=== PATIENT | female | born 1965 | race Hispanic/Latino ===

== ENCOUNTER 2018-11-09 22:05 | Emergency (ER) | payer SELFPAY ==
[2018-11-09] MEDS ORDERED: KETOROLAC 30 MG/ML INJ ONE (23:43)
[2018-11-09] MEDS ORDERED: HYDROCODONE/APAP 10/325 TAB ONE (23:43)
--- NOTE | 2018-11-10 00:50 | ER ---
Nurse's Notes [facility] Name: Cori Carwley Age: 53 yrs Sex: Female : 1965 Arrival Date: 11/09/2018 Time: 22:06 Bed 23 Private MD: Diagnosis: Pain in right knee Presentation: 11/09 22:35 Presenting complaint: Patient states: right knee swelling and pain that began 1 week aa5 ago. Pt states "I went to a clinic and they gave me ibuprofen and a muscle relaxer but it's not helping". Transition of care: patient was not received from another setting of care. Onset of symptoms was October 2018. Risk Assessment: Do you want to hurt yourself or someone else? Patient reports no desire to harm self or others. Initial Sepsis Screen: Does the patient meet any 2 criteria? No. Patient's initial sepsis screen is negative. Does the patient have a suspected source of infection? No. Patient's initial sepsis screen is negative. Care prior to arrival: None. 22:35 Acuity: YO 4 aa5 22:35 Method Of Arrival: Wheelchair aa5 [employer]: 22:36 LMP N/A - Post-menopause aa5 Historical: - Allergies: 22:35 No Known Allergies; aa5 - Home Meds: 22:35 None [Active]; aa5 - PMHx: 22:35 None; aa5 - PSHx: 22:35 ; aa5 - Immunization history:: Adult Immunizations unknown. - Social history:: Smoking status: Patient/guardian denies using tobacco. - Ebola Screening: : No symptoms or risks identified at this time. - Family history:: not pertinent. Screenin:42 Abuse screen: Denies threats or abuse. Denies injuries from another. Nutritional rv screening: No deficits noted. Tuberculosis screening: No symptoms or risk factors identified. Fall Risk None identified. Assessment: 22:41 General: Appears in no apparent distress. uncomfortable, Behavior is calm, cooperative. rv Pain: Complains of pain in right leg. Neuro: Level of Consciousness is awake, alert, obeys commands, Oriented to person, place, time, situation. Cardiovascular: Patient's skin is warm and dry. Respiratory: Airway is patent. GI: No signs and/or symptoms were reported involving the gastrointestinal system. : No signs and/or symptoms were reported regarding the genitourinary system. EENT: No signs and/or symptoms were reported regarding the EENT system. Derm: Skin is intact. Musculoskeletal: Range of motion: limited in right knee Reports pain in right leg. Vital Signs: 22:36 BP 123 / 84; Pulse 71; Resp 18 S; Temp 98.0(O); Pulse Ox 100% on R/A; Weight 99.79 kg aa5 (R); Height 5 ft. 6 in. (167.64 cm) (R); Pain 9/10; 11/10 00:15 BP 138 / 71; Pulse 57; Resp 16; Pulse Ox 100% on R/A; rv 11/09 22:36 Body Mass Index 35.51 (99.79 kg, 167.64 cm) aa5 ED Course: 11/09 22:06 Patient arrived in ED. ag3 22:34 Arm band placed on. aa5 22:36 Triage completed. aa5 22:37 Jose Bustos MD is Attending Physician. viral 22:41 Raza Gary RN is Primary Nurse. rv 22:43 Patient has correct armband on for positive identification. Bed in low position. Call rv light in reach. Side rails up X 1. Adult w/ patient. Pulse ox on. NIBP on. 23:35 X-ray completed. Portable x-ray completed in exam room. Patient tolerated procedure kw well. 23:36 Knee Right 3 View XRAY In Process Unspecified. EDMS 09 00:15 No provider procedures requiring assistance completed. Knee immobilizer applied on rv right knee. 00:46 Damien Collins MD is Referral Physician. viral 01:43 Patient did not have IV access during this emergency room visit. rv Administered Medications: 11/09 23:46 Drug: TORadol 60 mg Route: IM; Site: right deltoid; rv 11/10 01:42 Follow up: Response: No adverse reaction; Marked relief of symptoms; Pain is decreased rv 11/09 23:47 Drug: [place] 10 mg-325 mg 1 tabs {Note: RASS 0.} Route: PO; rv 11/10 01:42 Follow up: Response: No adverse reaction; Marked relief of symptoms; Pain is decreased; rv RASS: Alert and Calm (0) Outcome: 00:46 Discharge ordered by . viral 01:42 Discharged to home via wheelchair, with crutches, with family. rv 01:42 Condition: good 01:42 Discharge instructions given to patient, family, Instructed on discharge instructions, follow up and referral plans. medication usage, crutch walking, Demonstrated understanding of instructions, follow-up care, medications, crutch walking, Prescriptions given X 2. 01:43 Patient left the ED. rv Signatures: Dispatcher [employer] EDMS Jose Bustos MD MD cha Calderon, Audri, RN RN rere5 Crista Hawley Ronaldo RN RN Micheline Douglas
--- NOTE | 2018-11-10 00:50 | EDPHYS ---
Physician Documentation [facility] Name: Cori Crawley Age: 53 yrs Sex: Female : 1965 Arrival Date: 11/09/2018 Time: 22:06 Bed 23 Private MD: ED Physician Jose Bustos HPI: 11/09 23:38 This 53 yrs old Female presents to ER via Wheelchair with complaints of Leg viral Pain. 23:38 The patient presents with decreased range of motion, pain, that is acute. The viral complaints affect the right knee. Context: The problem was sustained at an unknown site, resulted from an unknown cause, the patient can partially bear weight, must have assistance, Problem is a result from a previous injury: No. Onset: The symptoms/episode began/occurred 10 day(s) ago. Modifying factors: The symptoms are alleviated by elevating leg, remaining still, the symptoms are aggravated by movement, weight bearing, bending knee. Associated signs and symptoms: The patient has no apparent associated signs or symptoms. Treatment prior to arrival includes: no previous treatment. Severity of symptoms: At their worst the symptoms were moderate, in the emergency department the symptoms are unchanged. The patient has not experienced similar symptoms in the past. 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 - Social history:: Smoking status: Patient/guardian denies using tobacco. - Ebola Screening: : No symptoms or risks identified at this time. - Family history:: not pertinent. ROS: 23:38 Constitutional: Negative for fever, chills, and weight loss, Eyes: Negative for injury, viral pain, redness, and discharge, ENT: Negative for injury, pain, and discharge, Neck: Negative for injury, pain, and swelling, Cardiovascular: Negative for chest pain, palpitations, and edema, Respiratory: Negative for shortness of breath, cough, wheezing, and pleuritic chest pain, Abdomen/GI: Negative for abdominal pain, nausea, vomiting, diarrhea, and constipation, Back: Negative for injury and pain, : Negative for injury, bleeding, discharge, and swelling, Skin: Negative for injury, rash, and discoloration, Neuro: Negative for headache, weakness, numbness, tingling, and seizure, Psych: Negative for depression, anxiety, suicide ideation, homicidal ideation, and hallucinations, Allergy/Immunology: Negative for hives, rash, and allergies, Endocrine: Negative for neck swelling, polydipsia, polyuria, polyphagia, and marked weight changes, Hematologic/Lymphatic: Negative for swollen nodes, abnormal bleeding, and unusual bruising. 23:38 MS/extremity: Positive for decreased range of motion, pain, swelling, tenderness, of the right knee. Exam: 23:38 Constitutional: This is a well developed, well nourished patient who is awake, alert, viral and in no acute distress. Head/Face: Normocephalic, atraumatic. Eyes: Pupils equal round and reactive to light, extra-ocular motions intact. Lids and lashes normal. Conjunctiva and sclera are non-icteric and not injected. Cornea within normal limits. Periorbital areas with no swelling, redness, or edema. ENT: Nares patent. No nasal discharge, no septal abnormalities noted. Tympanic membranes are normal and external auditory canals are clear. Oropharynx with no redness, swelling, or masses, exudates, or evidence of obstruction, uvula midline. Mucous membranes moist. Neck: Trachea midline, no thyromegaly or masses palpated, and no cervical lymphadenopathy. Supple, full range of motion without nuchal rigidity, or vertebral point tenderness. No Meningismus. Chest/axilla: Normal chest wall appearance and motion. Nontender with no deformity. No lesions are appreciated. Cardiovascular: Regular rate and rhythm with a normal S1 and S2. No gallops, murmurs, or rubs. Normal PMI, no JVD. No pulse deficits. Respiratory: Lungs have equal breath sounds bilaterally, clear to auscultation and percussion. No rales, rhonchi or wheezes noted. No increased work of breathing, no retractions or nasal flaring. Abdomen/GI: Soft, non-tender, with normal bowel sounds. No distension or tympany. No guarding or rebound. No evidence of tenderness throughout. Back: No spinal tenderness. No costovertebral tenderness. Full range of motion. Skin: Warm, dry with normal turgor. Normal color with no rashes, no lesions, and no evidence of cellulitis. Neuro: Awake and alert, GCS 15, oriented to person, place, time, and situation. Cranial nerves II-XII grossly intact. Motor strength 5/5 in all extremities. Sensory grossly intact. Cerebellar exam normal. Normal gait. Psych: Awake, alert, with orientation to person, place and time. Behavior, mood, and affect are within normal limits. 23:38 Musculoskeletal/extremity: Extremities: noted in the right knee: decreased ROM, pain, ROM: full passive range of motion, in the right knee, limited active range of motion due to pain, DVT Exam: negative Homans' sign noted on exam, no appreciated bluish discoloration, no erythema, no increased warmth, pain, swelling, tenderness. Vital Signs: 22:36 BP 123 / 84; Pulse 71; Resp 18 S; Temp 98.0(O); Pulse Ox 100% on R/A; Weight 99.79 kg aa5 (R); Height 5 ft. 6 in. (167.64 cm) (R); Pain 9/10; 11/10 00:15 BP 138 / 71; Pulse 57; Resp 16; Pulse Ox 100% on R/A; rv 11/09 22:36 Body Mass Index 35.51 (99.79 kg, 167.64 cm) aa5 MDM: 11/09 22:37 Patient medically screened. [facility] 23:41 Data reviewed: vital signs, nurses notes, radiologic studies, plain films. [facility] 11/09 22:55 Order name: Knee Right 3 View XRAY [facility] 11/09 23:38 Order name: Knee Immobilizer; Complete Time: 23:46 [facility] 11/09 23:38 Order name: Ice pack; Complete Time: 23:46 [facility] 11/09 23:38 Order name: Crutch Training; Complete Time: 23:46 [facility] Administered Medications: 23:46 Drug: TORadol 60 mg Route: IM; Site: right deltoid; 11/10 01:42 Follow up: Response: No adverse reaction; Marked relief of symptoms; Pain is decreased 11/09 23:47 Drug: [place] 10 mg-325 mg 1 tabs {Note: RASS 0.} Route: PO; 11/10 01:42 Follow up: Response: No adverse reaction; Marked relief of symptoms; Pain is decreased; rv RASS: Alert and Calm (0) Disposition: 11/10/18 00:46 Discharged to Home. Impression: Pain in right knee. - Condition is Stable. - Discharge Instructions: Joint Pain, Musculoskeletal Pain, Knee Pain. - Prescriptions for Ibuprofen 600 mg Oral Tablet - take 1 tablet by ORAL route every 6 hours As needed take with food; 30 tablet. Tylenol- Codeine #3 300-30 mg Oral Tablet - take 2 tablet by ORAL route every 6 hours As needed; 30 tablet. - Medication Reconciliation Form, Thank You Letter, Antibiotic Education, Prescription Opioid Use form. - Follow up: Private Physician; When: 2 - 3 days; Reason: Recheck today's complaints, Continuance of care, Re-evaluation by your physician. Follow up: Damien Collins; When: 2 - 3 days; Reason: Recheck today's complaints, Re-evaluation by your physician. - Problem is new. - Symptoms have improved. Signatures: Dispatcher [employer] EDMS Jose Bustos MD MD cha Calderon, Audri, RN RN aa5 Raza Gary RN RN rv Corrections: (The following items were deleted from the chart) 01:43 00:46 11/10/2018 00:46 Discharged to Home. Impression: Pain in right knee. Condition is rv Stable. Discharge Instructions: Joint Pain, Musculoskeletal Pain, Knee Pain. Prescriptions for Ibuprofen 600 mg Oral Tablet - take 1 tablet by ORAL route every 6 hours As needed take with food; 30 tablet, Tylenol-Codeine #3 300-30 mg Oral Tablet - take 2 tablet by ORAL route every 6 hours As needed; 30 tablet. and Forms are Medication Reconciliation Form, Thank You Letter, Antibiotic Education, Prescription Opioid Use. Follow up: Private Physician; When: 2 - 3 days; Reason: Recheck today's complaints, Continuance of care, Re-evaluation by your physician. Follow up: Damien Collins; When: 2 - 3 days; Reason: Recheck today's complaints, Re-evaluation by your physician. Problem is new. Symptoms have improved. viral
[2018-11-10 01:46] VITALS: TEMP 98; O2SAT 100
[2018-11-10 01:48] VITALS: BP 138/71
--- NOTE | 2018-11-10 08:04 | RAD REPORT ---
EXAM DESCRIPTION: RAD - Knee Right 3 View - 11/09/2018 11:40 pm CLINICAL HISTORY: PAIN COMPARISON: No comparisons FINDINGS: A moderate to large suprapatellar joint effusion is noted. No fracture, dislocation or agg ressive marrow lesion.
== END 2018-11-10 01:43 | disposition home or self-care (01) ==
LOC: ER 22:05
DX: M25.561 Pain in right knee (principal)
CPT/HCPCS: 96372; 99284

== ENCOUNTER 2024-04-24 16:27 | Emergency (ER) | payer SELFPAY ==
--- OUTSIDE RECORDS SUMMARY | 2024-04-24 16:31 | XMS REPORT | Continuity of Care Document ---
Author Name Unknown Address [address] [facility] [address] [place] [address] [facility] thconnect Address [address] [facility] [address] [facility] [address] [place] [address] Care Team Providers Care Forensic Document Examiner Name Role Phone Henry Escudero Primary Care Physician [phone] ELIESER REZA Attending Clinician SHEMAR Rucker Attending Clinician Unavailab GAB Bradley Attending Clinician Unavailable Julio Spaulding MD Attending Clinician JULIO SPAULDING Attending Clinician Unavailable YOLANDE_JAIMIE_Cone_S Attending Clinician Unavailab JULIO Freeman Admitting Clinician Unavailable YOLANDE_JAIMIE_Cone_S Admitting Clinician Unavailab katherine Payers Payer Name Policy Type Policy Number Effective Date Expirati on Date Source [facility]AY FOCUS 9 [id number] 2023 00:00:00 [facility] [id number] 2022 00:00:00 [employer] [facility] [place] [id number] Problems Condition Name Condition Details Condition Category Status Onset Date Resolution Date Last Treatment Date Treating Clinician Comments Source Cellulitis and abscess of trunk Cellulitis and abscess of trunk Disease Active 03-15 00:00: 00 [facility] Surveillan ce of previously prescribed contracept rose mary method Surveillan ce of previously prescribed contracept rose mary method Disease Active 03-13 00:00: 00 Overview: Formattin g of this note might be different from the original. ICD10 Diagnosis Term Dairy Department Manager Utility [facility] Screening for STDs (sexually transmitte d diseases) Screening for STDs (sexually transmitte d diseases) Disease Active 03-13 00:00: 00 Overview: Formattin g of this note might be different from the original. ICD10 Diagnosis Term Dairy Department Manager Utility [facility] Morbid obesity Morbid obesity Disease Active 03-13 00:00: 00 [facility] History of tubal ligation History of tubal ligation Disease Active 03-13 00:00: 00 [facility] Allergies, Adverse Reactions, Alerts Allergy Name Allergy Type Status Severity Reaction(s) Onset Date Inactive Date Treating Clinician Comments Source NO KNOWN ALLERGIE S Drug Class Active [facility] Social History Social Habit Start Date Stop Date Quantity Comments Source Sexual orientation K kamlesh Kerr - External Alcohol intake 2023-01-06 00:00:00 2023-01-06 00:00:00 Current drinker of alcohol (finding) Cintia Kerr - External History of Social function 2023-01-06 00:00:00 2023-01-06 00:00:00 Cintia Kerr - External Alcohol Comment 2023-01-06 00:00:00 2023-01-06 00:00:00 social Cintia Kerr - External Exposure to SARS-CoV-2 (event) 2022-01-25 00:00:00 2022-02-04 20:12:00 Not sure [facility] Sex Assigned At 1965 00:00:00 1965 00:00:00 Cintia Dwyer External Smoking Status Start Date Stop Date Source Never smoked tobacco Cintia Kerr - External Medications Ordered Medication Name Filled Medication Name Start Date Stop Date Current Medication? Ordering Clinician Indication Dosage Frequency Signature (SIG) Comments Components Source cyclobenzap rine 7.5 mg tablet 2023-03 00:00: 00 Yes 1mg [place] Monahan INJECT SC 25 MG ONCE WEEKLY FOR 4 WEEKS. 04-12 00:00: 00 Yes 2505 [place] Mon[place] TAKE 1 TABLET 3 TIMES DAILY WITH FOOD NEEDED. 03-31 00:00: 00 06-21 00:00 :00 No 800 [place] Mon[place] TAKE 1 TABLET Q 8-12 HOURS PRN MUSCLE SPASM 03-31 00:00: 00 06-21 00:00 :00 No 4 [place] Monahan methylPREDN ISolone 4 MG oral Tablet Therapy Pack 2022-03 00:00: 00 Yes [id number] 1{wilton} Take 1 wilton by mouth See Admin Instructio ns Use as directed. Cintia guerra Cyclobenzap rine HCl 5 MG oral Tablet 2022-03 00:00: 00 Yes [id number] 5mg QD Take 1 tablet (5 mg total) by mouth nightly as needed for muscle spasms. Cintia guerra TAKE 6 TABLETS ON DAY 1 DIRECTED ON PACKAGE AND DECREASE BY 1 TAB EACH DAY FOR A TOTAL OF 6 DAYS 2022-03 00:00: 00 Yes [place] Monahan TAKE 1 TABLET BY MOUTH NIGHTLY NEEDED FOR MUSCLE SPASMS 2022-03 00:00: 00 06-21 00:00 :00 No [place] Monahan iopamidol (ISOVUE 370-500 mL) injection 75 mL 2021-03 07:30: 00 02-05 07:30 :00 No [id number] 75mL 75 mL, Intravenou s, ONCE, 1 dose, On Roxana 02/05/22 at 0130, Routine [facility] No known medications 2021-03 22:12: 53 No No known medication s [facility] Immunizations Ordered Immunization Name Filled Immunization Name Date Status Comments Source SARS-COV-2 COVID-19 PFIZER VACCINE 2020-06-08 00:00:00 Completed [facility] SARS-COV-2 COVID-19 PFIZER VACCINE 2020-05-18 00:00:00 Completed [facility] Td 2008-02-03 00:00:00 Completed [facility] Td (adult) Unknown Completed Cintia Saab ybold - External Vital Signs Vital Name Observation Time Observation Value Comments S ource Systolic blood pressure 2023-01-06 15:05:00 128 mm[Hg] Cintia Toledoo ld - External Diastolic blood pressure 2023-01-06 15:05:00 74 mm[Hg] Cintia Saabybo ld - External Heart rate 2023-01-06 15:05:00 71 /min Kel y Seybold - External Body temperature 2023-01-06 15:05:00 36.67 Sonia Cintia Saabybold - External Respiratory rate 2023-01-06 15:05:00 15 /min Cintia Saabybold - External Body height 2023-01-06 15:05:00 167.6 cm Manuela gurrola Seybold - External Body weight 2023-01-06 15:05:00 104.327 kg Manuela gurrola Seybold - External BMI 2023-01-06 15:05:00 37.12 kg/m2 Manuela ey Seybold - External Respiratory rate 2022-02-05 07:59:00 18 /min [facility] Oxygen saturation in Arterial blood by Pulse oximetry 2022-02-05 07:59:00 97 /min [facility] Systolic blood pressure 2022-02-05 07:59:00 133 mm[Hg] [facility] Diastolic blood pressure 2022-02-05 07:59:00 8 mm[Hg] [facility] Heart rate 2022-02-05 07:59:00 68 /min [facility] Body temperature 2022-02-05 02:15:00 36.72 Sonia [facility] Body height 2022-02-05 02:15:00 165.1 cm [facility] Body weight 2022-02-05 02:15:00 102.649 kg [facility] BMI 2022-02-05 02:15:00 37.66 kg/m2 [facility] BP Systolic 2024-02-04 13:48:00 139 mm[Hg] Step hen [facility] BP Diastolic 2024-02-04 13:48:00 80 mm[Hg] Bernardo phen F [facility] Weight Measured 2024-02-04 13:48:00 218.80 pounds [place] F Hero Height Measured 2024-02-04 13:48:00 63.00 inches [place] [facility] Body Temperature 2024-02-04 13:48:00 [place] [facility] Heart Rate 2024-02-04 13:48:00 64.00 /min Nati en F Hero Respiratory Rate 2024-02-04 13:48:00 [place] F Hero BP Systolic 2023-04-12 08:04:00 138 mm[Hg] Step hen F Hero BP Diastolic 2023-04-12 08:04:00 79 mm[Hg] Bernardo phen F Hero Weight Measured 2023-04-12 08:04:00 224.00 pounds [place] F Hero Height Measured 2023-04-12 08:04:00 63.00 inches [place] F Hero Body Temperature 2023-04-12 08:04:00 98.20 degrees [place] F Hero Heart Rate 2023-04-12 08:04:00 68.00 /min Nati en F Hero Respiratory Rate 2023-04-12 08:04:00 19.00 /min [place] F Hero BP Systolic 2023-04-01 09:02:00 119 mm[Hg] Step hen F Hero BP Diastolic 2023-04-01 09:02:00 68 mm[Hg] Bernardo phen F Hero Weight Measured 2023-04-01 09:02:00 225.80 pounds [place] F Hero Height Measured 2023-04-01 09:02:00 63.00 inches [place] F Hero Body Temperature 2023-04-01 09:02:00 98.10 degrees [place] F Hero Heart Rate 2023-04-01 09:02:00 79.00 /min Nati en F Hero Respiratory Rate 2023-04-01 09:02:00 [place] F Hero BP Diastolic 2023-03-31 08:28:00 80 mm[Hg] Bernardo phen F Hero Weight Measured 2023-03-31 08:28:00 225.60 pounds [place] F Hero Height Measured 2023-03-31 08:28:00 63.00 inches [place] F Hero Body Temperature 2023-03-31 08:28:00 98.20 degrees [place] F Hero Heart Rate 2023-03-31 08:28:00 63.00 /min Nati en F Hero Respiratory Rate 2023-03-31 08:28:00 19.00 /min [place] F Hero BP Systolic 2023-03-31 08:28:00 133 mm[Hg] Step hen F Hero BP Systolic 2022-01-28 08:26:00 124 mm[Hg] Step hen F Hero BP Diastolic 2022-01-28 08:26:00 84 mm[Hg] Bernardo phen F Hero Weight Measured 2022-01-28 08:26:00 230.60 pounds [place] F Hero Height Measured 2022-01-28 08:26:00 63.00 inches [place] F Hero Body Temperature 2022-01-28 08:26:00 97.70 degrees [place] F Hero Heart Rate 2022-01-28 08:26:00 70.00 /min Nati en F Hero Respiratory Rate 2022-01-28 08:26:00 18.00 /min [place] F Hero BP Systolic 2022-01-23 16:28:00 146 mm[Hg] Step hen F Hero BP Diastolic 2022-01-23 16:28:00 83 mm[Hg] Bernardo phen F Hero Weight Measured 2022-01-23 16:28:00 152.80 pounds [place] F Hero Height Measured 2022-01-23 16:28:00 63.00 inches [place] F Hero Body Temperature 2022-01-23 16:28:00 98.30 degrees [place] F Hero Heart Rate 2022-01-23 16:28:00 108.00 /min Step hen F Hero Respiratory Rate 2022-01-23 16:28:00 18.00 /min [place] F Hero Procedures Procedure Date / Time Performed Performing Clinicia n Source CT CHEST PULMONARY ANGIOGRAM 2022-02-05 06:52:40 Julio Spaulding [facility] D-DIMER 2022-02-05 04:32:00 Julio Spaulding [facility] NOTICE OF PRIVACY PRACTICES 2022-02-05 02:05:00 Doctor Unassigned, [facility] [facility] Encounters Start Date/Time End Date/Time Encounter Type Admission Type Attending [facility] Care Facility Care Department Encounter ID Source 2024-02-04 00:00:00 2024-02-04 00:00:00 Outpatient Visit SFA [id number] [place] Mon[place] 2023-07-02 08:45:00 2023-07-02 08:45:00 Outpatient ELIESER REZA CINTIA [id number] [facility] 2023-07-01 08:45:00 2023-07-01 08:45:00 Outpatient ELIESER REZAPAULINA CHOE [id number] [facility] 2023-05-27 08:00:00 2023-05-27 08:00:00 Outpatient SHEMAR PADILLA CINTIA CHOE [id number] [facility] 2023-04-12 07:59:18 2023-04-12 07:59:18 Outpatient SFA SFA [id number] [place] 2023-04-01 08:49:09 2023-04-01 08:49:09 Outpatient SFA SFA [id number] [place] Monahan 2023-03-31 08:21:12 2023-03-31 08:21:12 Outpatient SFA SFA [id number] [place] Monahan 2023-01-06 09:00:00 2023-01-06 09:00:00 Outpatient DIONTEGAB Guerra CINTIA CHOE [id number] [facility] 2022-11-03 09:00:27 2022-11-03 09:00:27 Outpatient SFA SFA [id number] [place] Mon[place] 2022-02-24 08:35:25 2022-02-24 08:35:25 Outpatient SFA SFA [id number] iRchmond Monahan 2022-02-04 20:19:00 2022-02-05 02:15:00 Emergency Julio Spaulding [facility] [id number] [facility] 2022-02-04 20:19:00 2022-02-05 02:15:00 Emergency X JULIO SPAULDING [facility] [id number] [facility] 2022-01-30 00:00:00 2022-01-30 00:00:00 Outpatient GC_SWHATBIC [facility] [id number] [facility] 2022-01-28 08:18:26 2022-01-28 08:18:26 Outpatient [facility] [id number] [place] 2022-01-26 08:05:01 2022-01-26 08:05:01 Outpatient [facility] [id number] [place] 2022-01-23 16:21:12 2022-01-23 16:21:12 Outpatient [facility] [id number] [place] Results Test Description Test Time Test Comments Results Result Co mments Source HEMOGLOBIN [id number] 04:19:55* Test Item Value Reference Range Interpretation Comme nts HEMOGLOBIN A1c (test code = 35512) 6.0 % 4.2-5.6 H HEMOGLOBIN [id number] 00:00:00* Test Item Value Reference Range Interpretation Comme nts HEMOGLOBIN A1c (test code = 48186) 6.0 % [place] Blue [id number] 00:00:00* Test Item Value Reference Range Interpretation Comme nts D-DIMER (test code = 1405) 0.32 UG/MLFEU [place] MonahanOCCULT BLD,FECAL,IMMUNOASSAY [facility] [id number] 11:15:17* Test Item Value Reference Range Interpretation Comme nts OCCULT BLD, FECAL (test code = 05228) NEGATIVE NEGATIVE Note: Specim en received in an collection system. Results and details of analysis reviewed by GABRIEL ZHANG M.D. UNLESS OTHERWISE INDICATED, ALL TESTING PERFORMED [facility] [address] [place] [address], [place] [address] SWAMPER: JAIMIE GRACE M.D. CLIA NUMBER [id number] [facility] [place]. [id number] OCCULT BLD,FECAL,IMMUNOASSAY SHERIDAN COMMUNITY [id number] 00:00:00* Test Item Value Reference Range Interpretation Comme nts OCCULT BLD, FECAL (test code = 87675) NEGATIVE [place] Blue [id number] 00:00:00* Test Item Value Reference Range Interpretation Comme trever D-DIMER (test code = 1405) 0.50 UG/MLFEU [place] MonahanHEMOGLOBIN [id number] 00:00:00* Test Item Value Reference Range Interpretation Comme nts HEMOGLOBIN A1c (test code = 89914) 5.9 % [place] MonahanPAP TEST, THINPREP, [id number] 00:00:00* Test Item Value Reference Range Interpretation Comme nts SOURCE: (test code = 8001) Cervical SLIDES: (test code = 8011) 1 LMP: (test code = 8021) SEE NOTE SPECIMEN ADEQUACY: (test code = 32443) (NOTE) INTERPRETATION: (test code = 99418) NILM/NO EPITH. ABNORMALITY;SEE BELOW OTHER COMMENTS: (test code = 8081) (NOTE) FIBERGLASS AUTOBODY REPAIRER: (test code = 8101) NORA Trevizo(ASCP) LOCATION: (test code = 45556) (NOTE) CPT: (test code = 8140) (NOTE) [place] [id number] 08:44:03* Test Item Value Reference Range Interpretation Comme nts D-DIMER (test code = 1405) TEST NOT PERFORMED UG/ML FEU See_Comment Unable to perform testing, specimen not received.Charges adjusted as applicable. NOTE: Provided reference range is established for evaluation of Deep Venous Thrombosis/Pulmonary Embolus (DVT/PE). Results below cutoff value of <=0.49 UG/ML FEU have a high negative predictive value forDVT/PE. No reference range is established for disseminatedintra-vasc ular coagulation (DIC). UNLESS OTHERWISE INDICATED, ALL TESTING PERFORMED [facility] [address] [place] [address] SWAMPER: JAIMIE GRACE M.D. CLIA NUMBER [id number] [place]. [id number] [Automated message] The system which generated this result transmitted reference range: <=0.49. The reference range was not used to interpret this result as normal/abnormal. GC AND CHLAMYDIA AMPLIFIED, [id number] 00:00:00* Test Item Value Reference Range Interpretation Comme nts CHLAMYDIA, NAAT, THINPREP (t est code = 50881) NEGATIVE GONORRHEA, NAAT, THINPREP (t est code = 41651) NEGATIVE Richomnd [id number] 00:00:00* Test Item Value Reference Range Interpretation Comme nts RPR RESULT (test code = 3501) NON-REACTIVE RPR TITER (test code = 3500) NOT INDIC. TITER Richmond MonahanACUTE HEPATITIS [id number] 00:00:00* Test Item Value Reference Range Interpretation Comme nts HEPATITIS A IgM (test code = 84503) NON-REACTIVE HEPATITIS B CORE IgM (test c ode = 4644) NON-REACTIVE HEPATITIS B SURF AG (test co de = 2739) NON-REACTIVE HEPATITIS C ANTIBODY (test c ode = 4675) NON-REACTIVE INTERPRETATION HEPATITIS A: (test code = 2552) (NOTE) INTERPRETATION HEPATITIS B: (test code = 43321) (NOTE) INTERPRETATION HEPATITIS C: (test code = 03877) (NOTE) [place] MonahanHIV 1/2 4TH GEN, RFLX [id number] 00:00:00* Test Item Value Reference Range Interpretation Comme nts HIV 1/2 4TH GEN, RFLX CONF ( test code = 3514) NON-REACTIVE [place] MonahanHPV HIGH RISK WITH GENOTYPE, [id number] 00:00:00* Test Item Value Reference Range Interpretation Comme trever HPV HIGH RISK INTERP (test c ode = 89078) NEGATIVE HPV 16 (test code = 63921) NEGATIVE HPV 18 (test code = 02814) NEGATIVE HPV, HR, OTHER GENOTYPES (te st code = 81739) NEGATIVE [place] [id number] 00:00:00* Test Item Value Reference Range Interpretation Comme nts D-DIMER (test code = 1405) TEST NOT PERFORMED UG/MLFEU [place] MonahanCBC W/AUTO DIFF WITH [id number] 08:36:08* Test Item Value Reference Range Interpretation Comme nts WBC (test code = 1001) 4.6 K/UL 3.5-11.0 RBC (test code = 1002) 4.40 M/UL 3.80-5.40 HEMOGLOBIN (test code = 1003) 13.7 G/DL 11.5-15.5 HEMATOCRIT (test code = 1004) 42.4 % 34.0-45.0 MCV (test code = 1005) 96.4 fL 80.0-99.0 MCH (test code = 1006) 31.1 PG 25.0-33.0 MCHC (test code = 1007) 32.3 G/DL 31.0-36.0 RDW (test code = 1038) 12.5 % 11.5-15.0 NEUTROPHILS (test code = 1008) 51.7 % LYMPHOCYTES (test code = 1010) 33.8 % MONOCYTES (test code = 1011) 11.5 % EOSINOPHILS (test code = 1012) 2.4 % BASOPHILS (test code = 1013) 0.4 % IMMATURE GRANULOCYTES (test code = 1036) 0.2 % NUCLEATED RBCS (test code = 1065) 0.0 /100 WBC'S See_Comment [Automated 24/7 Carda ge] The system which generated this result transmitted reference range: 0.0. The reference range was not used to interpret this result as normal/abnormal. PLATELET COUNT (test code = 1015) 218 K/UL 130-400 ABSOLUTE NEUTROPHILS (test code = 1066) 2.37 K/UL 1.50-7.50 ABSOLUTE LYMPHOCYTES (test code = 1067) 1.55 K/UL 1.00-4.00 ABSOLUTE MONOCYTES (test code = 1068) 0.53 K/UL 0.20-1.00 ABSOLUTE EOSINOPHILS (test code = 1040) 0.11 K/UL 0.00-0.50 ABSOLUTE BASOPHILS (test code = 1069) 0.02 K/UL 0.00-0.20 ABS IMMATURE GRANULOCYTES (test code = 1020) 0.01 K/UL 0.00-0.10 ABS NUCLEATED RBCS (test code = 50677) 0.00 K/UL 0.00-0.11 COMPREHENSIVE METABOLIC [id number] 06:58:21* Test Item Value Reference Range Interpretation Comme nts GLUCOSE (test code = 2217) 117 MG/DL 70-99 H BUN (test code = 8) 15 MG/DL 6-20 CREATININE (test code = 2214) 0.73 MG/DL 0.60-1.30 eGFR (2020 CKD-EPI) (test code = 04404) 98 ML/MIN/1.73 >60 CALC BUN/CREAT (test code = 2235) 21 RATIO 6-28 SODIUM (test code = 2231) 144 MEQ/L 133-146 POTASSIUM (test code = 2227) 4.3 MEQ/L 3.5-5.4 CHLORIDE (test code = 2214) 105 MEQ/L 95-107 CARBON DIOXIDE (test code = 2205) 30 MEQ/L 19-31 CALCIUM (test code = 2208) 9.2 MG/DL 8.5-10.5 PROTEIN, TOTAL (test code = 2228) 6.7 G/DL 6.1-8.3 ALBUMIN (test code = 2200) 3.9 G/DL 3.5-5.2 CALC GLOBULIN (test code = 2239) 2.8 G/DL 1.9-3.7 CALC A/G RATIO (test code = 2233) 1.4 RATIO 1.0-2.6 BILIRUBIN, TOTAL (test code = 2206) 0.5 MG/DL See_Comment [Automated me ssage] The system which generated this result transmitted reference range: <=1.2. The reference range was not used to interpret this result as normal/abnormal. ALKALINE PHOSPHATASE (test code = 2203) 83 U/L 40-133 AST (test code = 2217) 22 U/L 9-40 ALT (test code = 2218) 26 U/L 5-40 CBC W/AUTO [id number] 00:00:00* Test Item Value Reference Range Interpretation Comme nts WBC (test code = 1001) 4.6 K/UL RBC (test code = 1002) 4.40 M/UL HEMOGLOBIN (test code = 1003) 13.7 G/DL HEMATOCRIT (test code = 1004) 42.4 % MCV (test code = 1005) 96.4 fL MCH (test code = 1006) 31.1 PG MCHC (test code = 1007) 32.3 G/DL RDW (test code = 1038) 12.5 % NEUTROPHILS (test code = 1008) 51.7 % LYMPHOCYTES (test code = 1010) 33.8 % MONOCYTES (test code = 1011) 11.5 % EOSINOPHILS (test code = 1012) 2.4 % BASOPHILS (test code = 1013) 0.4 % IMMATURE GRANULOCYTES (test code = 1036) 0.2 % NUCLEATED RBCS (test code = 1065) 0.0 /100WBC'S PLATELET COUNT (test code = 1015) 218 K/UL ABSOLUTE NEUTROPHILS (test c ode = 1066) 2.37 K/UL ABSOLUTE LYMPHOCYTES (test c ode = 1067) 1.55 K/UL ABSOLUTE MONOCYTES (test cod e = 1068) 0.53 K/UL ABSOLUTE EOSINOPHILS (test c ode = 1040) 0.11 K/UL ABSOLUTE BASOPHILS (test cod e = 1069) 0.02 K/UL ABS IMMATURE GRANULOCYTES (t est code = 1020) 0.01 K/UL ABS NUCLEATED RBCS (test cod e = 00832) 0.00 K/UL [place] MonahanCOMPREHENSIVE METABOLIC [id number] 00:00:00* Test Item Value Reference Range Interpretation Comme nts GLUCOSE (test code = 2217) 117 MG/DL BUN (test code = 2208) 15 MG/DL CREATININE (test code = 2214) 0.73 MG/DL eGFR (2020 CKD-EPI) (test co de = 90732) 98 ML/MIN/1.73 CALC BUN/CREAT (test code = 2235) 21 RATIO SODIUM (test code = 2231) 144 MEQ/L POTASSIUM (test code = 2228) 4.3 MEQ/L CHLORIDE (test code = 2215) 105 MEQ/L CARBON DIOXIDE (test code = 2206) 30 MEQ/L CALCIUM (test code = 2209) 9.2 MG/DL PROTEIN, TOTAL (test code = 2229) 6.7 G/DL ALBUMIN (test code = 2201) 3.9 G/DL CALC GLOBULIN (test code = 2240) 2.8 G/DL CALC A/G RATIO (test code = 2234) 1.4 RATIO BILIRUBIN, TOTAL (test code = 2207) 0.5 MG/DL ALKALINE PHOSPHATASE (test code = 2204) 83 U/L AST (test code = 2218) 22 U/L ALT (test code = 2219) 26 U/L [place] Monahan Notes Date/Time Note Provider Source [place] Monahan [facility]
[2024-04-24] MEDS ORDERED: dexAMETHasone 10 MG/ML VIAL ONE (18:21)
[2024-04-24] MEDS ORDERED: KETOROLAC 30 MG/ML INJ ONE (18:21)
[2024-04-24] MEDS ORDERED: GABAPENTIN 300 MG CAP ONE (18:21)
--- NOTE | 2024-04-24 18:29 | EDPHYS ---
Physician Documentation [facility] Name: Cori Crawley Age: 58 yrs Sex: Female : 1965 Arrival Date: 04/24/2024 Time: 16:27 Bed DIS3 Private MD: ED Physician Des Stoner HPI: 04/24 17:24 This 58 yrs old Female presents to ER via Wheelchair with complaints of Back sb4 Pain, Leg Pain. 17:24 Patient reports left low back pain that radiates down her left leg that began sb4 yesterday, got worse today. Denies any injury, states that she experiences pains like this occasionally and usually goes to the hospital for pain relief. States that she has been taking ibuprofen and Flexeril without any relief in symptoms. Denies any numbness or tingling. Denies any bowel or bladder incontinence. Historical: - Allergies: 17:21 No Known Allergies; ap3 - PSHx: 17:21 section; ap3 - Immunization history:: Adult Immunizations up to date. - Infectious Disease History:: Denies. - Social history:: Smoking status: Patient denies any tobacco usage or history of. ROS: 17:24 Constitutional: Negative for fever, chills, and weight loss, sb4 17:24 MS/extremity: Positive for pain, of the back and left leg, 17:24 All other systems are negative, Exam: 17:24 Head/Face: Normocephalic, atraumatic. Eyes: Extra-ocular motions intact. Periorbital sb4 areas with no swelling, redness, or edema. ENT: Mucous membranes moist. Cardiovascular: Regular rate and rhythm with a normal S1 and S2. Respiratory: No increased work of breathing, no retractions or nasal flaring. Abdomen/GI: Soft, non-tender, no distension. Back: No spinal tenderness. No costovertebral tenderness. Full range of motion. Skin: Warm, dry with normal turgor. Normal color with no rashes, no lesions, and no evidence of cellulitis. MS/ Extremity: Pulses equal, no cyanosis. Neurovascular intact. Full, normal range of motion. Neuro: Awake and alert, GCS 15, oriented to person, place, time, and situation. Motor strength 5/5 in all extremities. Sensory grossly intact. 17:24 Constitutional: The patient appears alert, awake, uncomfortable, 17:24 Neuro: Motor: is normal, moves all fours, Sensation: is normal, Vital Signs: 17:22 BP 136 / 76; Pulse 76; Resp 17; Temp 98.8; Pulse Ox 99% ; Weight 98.88 kg; Pain 10/10; ap3 17:22 Pain Scale: Adult ap3 MDM: 17:02 Medical Screening Exam initiated sb4 18:29 Data reviewed: vital signs, nurses notes, and as a result, I will discharge patient. sb4 Test considered but Not performed: X-ray: not indicated, no injury. Historians other than the Patient: Spouse/Significant Other: son. Administered Medications: 18:27 Drug: Dexamethasone IM 10 mg IM once Route: IM; Site: left deltoid; kc6 19:11 Follow up: Response: No adverse reaction ha1 18:27 Drug: Gabapentin PO 300 mg PO once Route: PO; kc6 19:11 Follow up: Response: No adverse reaction; Marked relief of symptoms ha1 18:27 Drug: Ketorolac IM 30 mg IM once Route: IM; Site: right deltoid; kc6 19:11 Follow up: Response: No adverse reaction; Marked relief of symptoms; Pain is decreased ha1 Disposition: 18:47 I was immediately available on-site in the Emergency Department for consultation in the ms3 care of the patient. Disposition Summary: 04/24/24 18:29 Discharge Ordered Notes: Location: Home sb4 Problem: an acute exacerbation sb4 Symptoms: have improved sb4 Condition: Stable sb4 Diagnosis - Lumbago with sciatica, left side sb4 Followup: sb4 - With: Marcela Callaway DO - When: 1 week - Reason: Recheck today's complaints, Re-evaluation by your physician Discharge Instructions: - Discharge Summary Sheet sb4 - Sciatica sb4 - Back Exercises, [id number] sb4 Forms: - Patient Portal Instructions sb4 - Leadership Thank You Letter sb4 Prescriptions: - Diclofenac Sodium 75 mg Oral Tablet Sustained Release - take 1 tablet ORAL route 2 times per day; 30 tablet; Refills: 0, Product sb4 Selection Permitted - Medrol (Kai) 4 mg Oral Tablets, Dose Pack - take 1 tablet ORAL route as directed - follow package instructions; 1 packet; sb4 Refills: 0, Product Selection Permitted - methocarbamol 750 mg Oral tablet - take 2 tablets ORAL route 3 times per day; 20 tablet; Refills: 0, Product sb4 Selection Permitted Signatures: Claudia Esuqivel RN RN ap3 Des Stoner DO DO ms3 Aranza De La Rosa RN RN kc6 Annette Cope PA-C PA-C sb4 Kristina Selby RN ha1 Corrections: (The following items were deleted from the chart) 17:22 17:21 Home Meds: None; ap3 ap3 17:27 17:24 Patient reports left low back pain that radiates down her left leg. Denies any sb4 injury, states that she experiences pains like this occasionally and usually goes to the hospital for pain relief. States that she has been taking ibuprofen and Flexeril without any relief in symptoms. Denies any numbness or tingling. Denies any bowel or bladder incontinence. sb4
--- NOTE | 2024-04-24 18:29 | ER ---
Nurse's Notes [facility] Name: Cori Crawley Age: 58 yrs Sex: Female : 1965 Arrival Date: 04/24/2024 Time: 16:27 Bed DIS3 Private MD: Diagnosis: Lumbago with sciatica, left side Presentation: 04/24 17:20 Chief complaint: Patient states: she is having left hip pain that radiates down her ap3 left leg and started yesterday. Coronavirus screen: At this time, the client does not indicate any symptoms associated with coronavirus-19. Ebola Screen: No symptoms or risks identified at this time. Risk Assessment: Do you want to hurt yourself or someone else? Patient reports no desire to harm self or others. Onset of symptoms was April 23, 2024. 17:20 Method Of Arrival: Wheelchair ap3 17:20 Acuity: YO 4 ap3 17:22 Initial Sepsis Screen: Does the patient meet any 2 criteria? No. Patient's initial ap3 sepsis screen is negative. Does the patient have a suspected source of infection? No. Patient's initial sepsis screen is negative. Triage Assessment: 17:22 General: Appears uncomfortable, Behavior is calm. Pain: Complains of pain in left hip ap3 Pain radiates to left leg Pain currently is 10 out of 10 on a pain scale. Pain began 1 day ago. Neuro: Level of Consciousness is awake, alert, obeys commands, Oriented to person, place, time, situation, Appropriate for age. Cardiovascular: Patient's skin is warm and dry. Respiratory: Airway is patent Respiratory effort is even, unlabored, Respiratory pattern is regular, symmetrical. Musculoskeletal: Range of motion: intact in all extremities. Historical: - Allergies: 17:21 No Known Allergies; ap3 - PSHx: 17:21 section; ap3 - Immunization history:: Adult Immunizations up to date. - Infectious Disease History:: Denies. - Social history:: Smoking status: Patient denies any tobacco usage or history of. Screenin:23 [facility] ED Fall Risk Assessment (Adult) History of falling in the last 3 months, ap3 including since admission No falls in past 3 months (0 pts) Confusion or Disorientation No (0 pts) Intoxicated or Sedated No (0 pts) Impaired Gait No (0 pts) Mobility Assist Device Used No (0 pt) Altered Elimination No (0 pt) Score/Fall Risk Level 0 - 2 = Low Risk Oriented to surroundings, Maintained a safe environment, Educated pt \T\ family on fall prevention, incl call for assistance when getting out of bed, Assessed \T\ reinforced patient's understanding of fall precautions, Hourly rounding (assess needs \T\ fall precautionary measures) done, Used ambulatory aids as needed (educated on \T\ assisted with). Abuse screen: Denies threats or abuse. Nutritional screening: No deficits noted. Tuberculosis screening: No symptoms or risk factors identified. Assessment: 19:12 Reassessment: Patient and/or family updated on plan of care and expected duration. Pain ha1 level reassessed. Patient is alert, oriented x 3, equal unlabored respirations, skin warm/dry/pink. Vital Signs: 17:22 BP 136 / 76; Pulse 76; Resp 17; Temp 98.8; Pulse Ox 99% ; Weight 98.88 kg; Pain 10/10; ap3 17:22 Pain Scale: Adult ap3 ED Course: 16:48 Patient arrived in ED. al6 17:01 Annette Cope PA-C is PHCP. sb4 17:01 Des Stoner DO is Attending Physician. sb4 17:21 Triage completed. ap3 17:23 Arm band placed on right wrist. ap3 18:29 Marcela Callaway DO is Referral Physician. sb4 19:11 No provider procedures requiring assistance completed. Patient did not have IV access ha1 during this emergency room visit. 19:12 Patient has correct armband on for positive identification. Provided Education on: ha1 follow ups . Administered Medications: 18:27 Drug: Dexamethasone IM 10 mg IM once Route: IM; Site: left deltoid; kc6 19:11 Follow up: Response: No adverse reaction ha1 18:27 Drug: Gabapentin PO 300 mg PO once Route: PO; kc6 19:11 Follow up: Response: No adverse reaction; Marked relief of symptoms ha1 18:27 Drug: Ketorolac IM 30 mg IM once Route: IM; Site: right deltoid; kc6 19:11 Follow up: Response: No adverse reaction; Marked relief of symptoms; Pain is decreased ha1 Medication: 19:12 VIS not applicable for this client. ha1 Outcome: 18:29 Discharge ordered by . sb4 19:11 Discharged to home via wheelchair, with family, ha1 19:11 Condition: stable 19:11 Discharge instructions given to patient, Instructed on discharge instructions, follow up and referral plans. medication usage, Demonstrated understanding of instructions, follow-up care, medications, Prescriptions given X 3, 19:12 Patient left the ED. ha1 Signatures: Claudia Esquivel RN RN ap3 Kristina Selby RN RN ha1 Aranza De La Rosa RN RN [email or web address] Annette Cope, PA-C PA-C sb4 Sabrina Bain Corrections: (The following items were deleted from the chart) 17:22 17:21 Home Meds: None; ap3 ap3
[2024-04-24 19:24] VITALS: BP 136/76; TEMP 98.8; O2SAT 99
== END 2024-04-24 19:12 | disposition home or self-care (01) ==
LOC: ER 16:27
DX: M54.42 Lumbago with sciatica, left side (principal)
CPT/HCPCS: 96372; 99284; J1100